=== PATIENT | female | born 1970 | race Two or more races ===

== ENCOUNTER → 2018-02-19 | Outpatient (CLI) | payer OTHER ==
[2018-02-19 19:06] LABS: T4 (THYROXINE) 12.4 mcg/dL (4.8-13.9)
[2018-02-19 19:15] LABS: THYROID STIMULATING HORMONE 2.58 mIU/L (0.358-3.740)
== END | disposition home or self-care (01) ==
LOC: LAB 18:25
DX: E03.9 Hypothyroidism, unspecified (principal)
CPT/HCPCS: 36415; 84436; 84443; 84481